=== PATIENT | male | born 1965 | race American Indian/Alaskan Native ===

== ENCOUNTER 2016-10-20 21:18 | Emergency (ER) | payer OTHER ==
--- NOTE | ~2016-10-20 | CR181 ---
[facility] A Service of [facility] & [facility] RADIOLOGY TEXT RESULTS PATIENT: FRANNIE MENCHACA LOCATION: [facility] : 67 UNIT #: [id number] AGE: [address]: GISELLA WEAVER SEX: M ORDER DR: [id number] [facility] [address] [place], [place] [address] [id number] MR#: [id number] Acc #: [id number] NAME: FRANNIE MENCHACA : 1965 SEX: M STUDY DATE/TIME: 10/20/2016 22:45 UNIT: [facility] ROOM: STUDY DESCRIPTION: CR Lumbar Spine 2 or 3 Views Attending Physician: Gisella Weaver Aprn Ordering Physician: Gisella Weaver Aprn Primary Care Physician: Ricardo Ochoa Sr., M.D. MEDICAL IMAGING REPORT This report is preliminary unless electronic signature is present EXAM Lumbar spine series 10/20/2016 HISTORY 51-year-old male in the ED complaining of back pain, check complaining of low back pain of unspecified duration. No reported acute injury. TECHNIQUE 3-view lumbar spine series. FINDINGS No acute or chronic fracture deformity or additional osseous abnormality. Moderate degenerative disc space narrowing at L5-S1. Lumbar vertebral alignment is normal. IMPRESSION 1. No acute osseous abnormality. 2. Moderate degenerative disc space narrowing at L5-S1. Dictated by... Jed Pandya M.D. THIS IS AN ELECTRONICALLY VERIFIED REPORT Jed Pandya M.D. at 10/21/2016 5:57 AM ANGEL/francisco TD: 10/20/2016 23:27 JOB #: [id number] MEDICAL IMAGING REPORT Page 1 of 1 COPY
== END 2016-10-21 00:02 | disposition home or self-care (01) ==
LOC: CFTX 21:18
DX: S39.012A Strain of muscle, fascia and tendon of lower back, initial encounter (principal); Z98.890 Other specified postprocedural states; Z79.899 Other long term (current) drug therapy; V43.52XA Car driver injured in collision with other type car in traffic accident, initial encounter; Y92.410 Unspecified street and highway as the place of occurrence of the external cause
CPT/HCPCS: 72100; 99283